=== PATIENT | female | born 1950 | race Caucasian/White ===

== ENCOUNTER → 2016-12-30 | Outpatient (CLI) | payer BC ==
[~2016-12-30] MED LIST: ASP325TEC PO; CALC-850 PO; CHOL200018 PO; FELO10TA3 PO; FENO145T20 PO; GLUC1CAP18 PO; KRIL1CAP12 PO; MULT-1029 PO; NEBI5TAB8 PO; QUIN20TA15 PO; TERB250T10 PO
--- NOTE | 2016-12-31 19:47 | Diagnostic Imaging Report ---
INDICATION: Digital mammogram bilateral screening with tomosynthesis. This study was compared to the prior exam of 08/19/15, 06/20/14 and 08/09/12. At this time, there are no current complaints. The current study was also evaluated with a Computer Aided Detection (CAD) system. FINDINGS: There are scattered fibroglandular densities in both breasts which could obscure a lesion. When compared to the prior study, there has been no significant change. There is no primary or secondary sign of malignancy noted. The 3D tomographic views also fail to show any sign of malignancy. IMPRESSION: There is no evidence of malignancy. ACR BI-RADS Category 1: Negative. Result letter will be mailed to the patient. Note: At least 10% of breast cancer is not imaged by mammography. Dictated on workstation # [id number]
== END ==
LOC: RAD 09:53
PROVIDERS: ATTEND Nurse Practitioner Family
DX: Z12.31 Encounter for screening mammogram for malignant neoplasm of breast (principal)
CPT/HCPCS: 77067

== ENCOUNTER 2018-04-10 13:13 | Outpatient (RCR) | payer BC ==
[~2018-04-10 13:13] MED LIST changes: -FENO145T20 PO; +FENO145T37 PO
[2018-04-10 13:58] LABS: BASOPHILS # (AUTO) 0.1 10^3/uL (0.0-0.1); BASOPHILS % (AUTO) 1 % (0-10); EOSINOPHILS # (AUTO) 0.1 10^3/uL (0.0-0.3); EOSINOPHILS % (AUTO) 2 % (0-10); HEMATOCRIT 42 % (35-52); HEMOGLOBIN 14.5 G/DL (11.5-16.0); LYMPHOCYTES # (AUTO) 2.5 X 10^3 (1.0-4.0); LYMPHOCYTES % (AUTO) 37 % (12-44); MEAN CORPUSCULAR HEMOGLOBIN 29 PG (25-34); MEAN CORPUSCULAR HGB CONC 35 G/DL (32-36); MEAN CORPUSCULAR VOLUME 83 FL (80-99); MEAN PLATELET VOLUME 10.3 FL (7.4-10.4); MONOCYTES # (AUTO) 0.6 X 10^3 (0.0-1.0); MONOCYTES % (AUTO) 8 % (0-12); NEUTROPHILS # (AUTO) 3.6 X 10^3 (1.8-7.8); NEUTROPHILS % (AUTO) 53 % (42-75); PLATELET COUNT 400 10^3/uL (130-400); RED CELL DISTRIBUTION WIDTH 14.3 % (10.0-14.5); WHITE BLOOD COUNT 6.8 10^3/uL (4.3-11.0)
[2018-04-10 14:20] LABS: ALBUMIN 4.2 GM/DL (3.2-4.5); BILIRUBIN,TOTAL 0.4 MG/DL (0.1-1.0); CALCIUM 10.3 MG/DL (8.5-10.1); CREATININE SERUM 0.96 MG/DL (0.60-1.30); POTASSIUM 4.1 MMOL/L (3.6-5.0); TOTAL PROTEIN 7.3 GM/DL (6.4-8.2)
== END 2018-07-09 | disposition home or self-care (01) ==
LOC: ONC 13:13
PROVIDERS: ATTEND Internal Medicine Hematology & Oncology
DX: D47.2 Monoclonal gammopathy (principal); I10 Essential (primary) hypertension; Z79.899 Other long term (current) drug therapy; E78.00 Pure hypercholesterolemia, unspecified; Z87.891 Personal history of nicotine dependence; Z80.52 Family history of malignant neoplasm of bladder; Z80.42 Family history of malignant neoplasm of prostate; Z80.2 Family history of malignant neoplasm of other respiratory and intrathoracic organs; Z80.49 Family history of malignant neoplasm of other genital organs; Z80.9 Family history of malignant neoplasm, unspecified
CPT/HCPCS: 36415; 80053; 82232; 82784; 83883; 84155; 84165; 85025; 99214

== ENCOUNTER → 2019-08-13 | Outpatient (CLI) | payer MEDICARE, BC ==
[~2019-08-13] MED LIST changes: -FELO10TA3 PO; +FELO10TA41 PO; +FENO145T26 PO; -FENO145T37 PO
--- NOTE | 2019-08-13 12:07 | Diagnostic Imaging Report ---
INDICATION: Left foot pain. Time of exam 11:14 AM 3 views of the left foot were obtained. Metatarsals are intact. Phalanges appear intact. Midfoot and hindfoot are unremarkable apart from prominent posterior and plantar calcaneal spurs. No fractures are seen. No periosteal reaction or stress reaction is identified. There is some mild generalized demineralization. IMPRESSION: Demineralization. No acute bony abnormality is detected. Dictated by: Dictated on workstation # [id number]
== END ==
LOC: RAD 10:56
PROVIDERS: ATTEND Family Medicine
DX: M81.0 Age-related osteoporosis without current pathological fracture (principal)
CPT/HCPCS: 73630

== ENCOUNTER 2019-10-05 06:36 | Day surgery (SDC) | payer BC ==
[~2019-10-05] VITALS: Ht 168 cm; Wt 90.0 kg
[2019-10-05] VITALS (9 sets, daily range): BP systolic 132–149; BP diastolic 70–75
[2019-10-05] MEDS ORDERED: LIDOCAINE 1% INJ 20 ML 20 ML VIAL ONE (06:56)
[2019-10-05] MEDS ORDERED: HEParin (CATH LAB) 2,000 ML IV ONE (06:56)
[2019-10-05] MEDS ORDERED: NS IV 1000 ML 1,000 ML ONE (06:56)
[2019-10-05] MEDS ORDERED: NS IV 1000 ML 1,000 ML IV SCH ×2 (07:15→08:57)
[2019-10-05 07:28] LABS: HEMOGLOBIN 15.4 G/DL (11.5-16.0); MEAN PLATELET VOLUME 10.4 FL (7.4-10.4); RED CELL DISTRIBUTION WIDTH 15.2 % (10.0-14.5); WHITE BLOOD COUNT 7.8 10^3/uL (4.3-11.0)
[2019-10-05] MEDS ORDERED: BIOT1TAB PO (07:32)
[2019-10-05] MEDS ORDERED: ASPI-808 PO (07:32)
[2019-10-05] MEDS ORDERED: NIAC500T24 PO (07:32)
[2019-10-05 07:47] LABS: ALBUMIN 4.3 GM/DL (3.2-4.5); BILIRUBIN,TOTAL 0.5 MG/DL (0.1-1.0); CALCIUM 9.6 MG/DL (8.5-10.1); CREATININE SERUM 1.03 MG/DL (0.60-1.30); POTASSIUM 4.2 MMOL/L (3.6-5.0); TOTAL PROTEIN 7.8 GM/DL (6.4-8.2)
[2019-10-05 07:52] LABS: PROTHROMBIN TIME PATIENT 13.5 SEC (12.2-14.7)
[2019-10-05] MEDS ORDERED: MIDAZOLAM 5 MG/5 ML (VERSED) VIAL ONE (07:57)
[2019-10-05] MEDS ORDERED: fentaNYL INJECTION 100 MCG/2 ML AMP ONE (07:57)
[2019-10-05] MEDS ORDERED: diphenhydrAMINE 50 MG/ML INJ (BENADRYL) ONE (07:57)
--- NOTE | 2019-10-05 08:57 | Cardiac Procedure Note-CS/ASA ---
Pre-Procedure Note Pre-Op Procedure Note H&P Reviewed The H&P was reviewed, patient examined and no changes noted. Date H&P Reviewed: October 05, 2019 Time H&P Reviewed: 08:10 Conscious Sedation Pre-Proced Time 08:10 ASA Score 3 For ASA 3 and 4: Consider anesthesia and medical clearance. Also, for patients with a history of failed moderate sedation consider anesthesia. Airway Lungs Heart ASA score ASA 1: a normal healthy patient ASA 2: a patient with a mild systemic disease (mid diabetes, controlled hypertension, obesity ASA 3: a patient with a severe systemic disease that limits activity (angina, COPD, prior Myocardial infarction) ASA 4: a patient with an incapacitating disease that is a constant threat to life (CHF, renal failure) ASA 5: a moribund patient not expected to survive 24 hrs. (ruptured aneurysm) ASA 6: a declared brain- patient whose organs are being harvested. For emergent operations, add the letter E after the classification Mallampati Classification Grade 2 Sedation Plan Analgesia, Amnesia, Plan communicated to team members, Discussed options with patient/fam, Discussed risks with patient/fam The patient is an appropriate candidate to undergo the planned procedure, sedation, and anesthesia. The patient immediately re-assessed prior to indication. PEDRO ARELLANO MD FACP FAC CCDS October 05, 2019 08:57
[2019-10-05] MEDS ORDERED: PATIENT MAY USE OWN MEDS, ALL PO SCH (09:00)
--- NOTE | 2019-10-05 09:02 | Discharge Inst-Post CATH ---
Discharge Inst-CATH/EP Post Cardiac Cath/EP D/C Inst Follow Up/Plan F/u with Dr Walker in 2 weeks ACTIVITY * Go Home directly and rest. * Limit activity of the leg (or wrist if it was used) for 7 days including aerobics, swimming, jogging, bicycling, etc. * Restrict stair-climbing for 7 days if possible, if not, climb up with your n on-cath leg, then bring together on the same step. * Avoid lifting, pushing, pulling or excessive movement of the affected ex tremity for 7 days. * Customary sexual activity may be resumed after 2 days-use caution not to use a position that strains or causes pain to the affected extremity. * No driving for 24 hours. * NO SMOKING. * Avoid straining for bowel movements for 7 days. * Gentle walking on level ground is allowed. * Returning to work will depend on the type of procedure and the results. Your doctor will discuss this with you. CALL YOUR DOCTOR FOR ANY OF THE FOLLOWING: *If bleeding from the puncture site occurs- Apply gentle pressure to site with clean cloth and call your doctor or EMS. * If a knot or lump forms under the skin, increases in size, or causes pain. * If bruising appears to be worsening or moving further down your leg instead of disappearing. * Temperature above 101 F. CARE OF YOUR GROIN INCISION; * Bruising or purple discoloration of the skin near the puncture site is common. * You may shower only, no bathtub bathing for 5 days. Be careful to avoid slipping as your leg may feel stiff. * If a closure device was used on your femoral artery, please see the attached guide regarding care of the device and your leg. * Leave dressing on FOR 24 hours. CARE OF YOUR WRIST INCISION; * Bruising or purple discoloration of the skin near the puncture site is common. * You may shower. * DO NOT submerge wrist. * Leave dressing on FOR 24 hours. PEDRO WALKER MD FACP FAC CCDS October 05, 2019 09:02
--- NOTE | 2019-10-05 09:02 | Discharge Inst-Cardiology ---
Discharge Inst-Cardiac Discharge Medications Continued Medications: Aspirin (Aspirin) 325 Mg Tablet 325 MG PO DAILY, TAB Biotin (Biotin) 1 Mg Tablet 1 MG PO DAILY, TAB Felodipine (Felodipine ER) 10 Mg Tab.er.24h 10 MG PO HS, TAB Fenofibrate Nanocrystallized (Fenofibrate) 145 Mg Tablet 145 MG PO DAILY, TAB Gluc Nunes/Chondro Nunes A/Vit C/Mn (Glucosamine 1,500 Complex Cp) 1 Cap Capsule 1 CAP PO BID, CAP Krill/[place]-3/Dha/Epa/Lipids (Krill Oil 300 Mg Softgel) 1 Each Capsule 1 EACH PO DAILY, CAP Mu-Vits-Min Th/Lycopene/Lutein (Centrum Silver Tablet) 1 Each Tablet 1 EACH PO DAILY, TAB Nebivolol Hcl (Bystolic) 5 Mg Tablet 2.5 MG PO BID, TAB Niacinamide (Niacin) 500 Mg Tablet 500 MG PO DAILY, TAB Quinapril Hcl (Quinapril) 20 Mg Tablet 20 MG PO BID, TAB PEDRO ARELLANO MD FACP FAC CCDS October 05, 2019 09:01
--- NOTE | 2019-10-05 09:50 | CARDIAC CATHETERIZATION ---
DATE OF SERVICE: 10/05/2019 CARDIAC CATHETERIZATION The patient is a 69-year-old lady, who has multiple coronary artery disease risk factors and has symptoms consistent with unstable angina. Cardiac catheterization was recommended and informed consent was obtained. DESCRIPTION OF PROCEDURE: She was brought to the cardiac catheterization laboratory in a fasting state. Right groin was prepared and draped in the usual sterile fashion. Lidocaine 1% was used for local anesthesia. Modified Seldinger technique was used to advance a 5-Ecuadorean sheath into the right femoral artery. A 5-Ecuadorean JL4 catheter was used for left coronary angiography and 5-Ecuadorean JR4 catheter was used for right coronary angiography. A 5-Ecuadorean pigtail catheter was used for left heart catheterization and left ventricular angiography. Because cardiac catheterization and coronary angiography did not indicate any coronary source of chest pain and because the aortic knob was exhibiting some calcification, we pulled back the pigtail catheter to the aortic arch and aortic arch angiography was performed. The pigtail catheter was then removed. Angiography of the right femoral artery was carried out through the sheath. Mynx was used to achieve hemostasis. She tolerated the procedure well. HEMODYNAMICS: Left ventricular end-diastolic pressure following coronary angiography was 21 mmHg. There is no significant pressure gradient on pullback across the aortic valve. Ascending aortic pressure was 137/78 with a mean of 103 mmHg. LEFT VENTRICULAR ANGIOGRAPHY: Left ventricular angiography was carried out in the right anterior oblique projection. Global left ventricular systolic function normal. No regional wall motion abnormalities seen. Left ventricular ejection fraction is approximately 60%. CORONARY ANGIOGRAPHY: Left main coronary artery is free of significant disease. Left anterior descending artery is free of significant disease. Left circumflex artery is free of significant disease. Right coronary artery is dominant and free of significant disease. AORTIC ARCH ANGIOGRAPHY: Aortic arch angiography did not indicate any significant thoracic aortic aneurysm or dissection. Some calcification of the aortic arch is seen. Neck arteries, to the extent visualized, do not exhibit any significant disease. CONCLUSIONS: 1. No angiographically significant coronary artery disease. 2. Normal global left ventricular systolic function with ejection fraction approximately 60%. 3. Elevated left ventricular end-diastolic pressure, measuring 21 mmHg. 4. Aortic arch calcification without evidence of thoracic aortic aneurysm or dissection. DISCUSSION AND RECOMMENDATIONS: Based on results of the study, it appears appropriate to continue a conservative approach. Risk factor modification has been reviewed. Outpatient followup is advised. Job ID: [id number] DocumentID: [id number] Dictated Date: 10/05/2019 08:47:57 Robotics Systems Engineer Date: 10/05/2019 09:50:08 Dictated By: PEDRO ARELLANO MD, MA, FACP, FACC,
== END 2019-10-05 12:05 | disposition home or self-care (01) ==
LOC: CATH 06:36 → SDC 09:09 → CATH 12:05
PROVIDERS: ATTEND Internal Medicine Cardiovascular Disease
DX: I70.0 Atherosclerosis of aorta (principal); I10 Essential (primary) hypertension; E78.00 Pure hypercholesterolemia, unspecified; E78.5 Hyperlipidemia, unspecified; E66.9 Obesity, unspecified; Z68.31 Body mass index [BMI] 31.0-31.9, adult; Z90.710 Acquired absence of both cervix and uterus; Z90.49 Acquired absence of other specified parts of digestive tract; Z87.891 Personal history of nicotine dependence; Z91.040 Latex allergy status; Z88.5 Allergy status to narcotic agent; Z79.82 Long term (current) use of aspirin; Z79.899 Other long term (current) drug therapy; Z80.1 Family history of malignant neoplasm of trachea, bronchus and lung
CPT/HCPCS: 36221; 36415; 80053; 80061; 85027; 85610; 85730; 87081; 93458

== ENCOUNTER 2022-08-12 09:42 | Emergency (ER) | payer BC ==
[~2022-08-12] VITALS: Ht 167 cm; Wt 81.0 kg
[~2022-08-12 09:42] MED LIST changes: +ASPI-808 PO; +BIOT1TAB PO; +NIAC500T24 PO
--- NOTE | 2022-08-12 09:55 | ED Fall/Injury ---
General Chief Complaint: Trauma-Non Activation Stated Complaint: FALL | HEAD AND RT WRIST INJ Source: patient, EMS History of Present Illness Date Seen by Provider: Aug 12, 2022 Time Seen by Provider: 09:45 Initial Comments 72-year-old female presents to the emergency department via EMS. She was playing pickle ball at a local gym and was closer to the back wall than she realized. When she backed up to get a shot she hit the wall, striking the back part of her head. She states she then slid down the wall and hurt her right wrist. She stated that she had a friend who is a nurse there. She was trying to get to speak with her and she was briefly stunned. She also states she had a brief period of electric shock sensation from her neck into her bilateral upper extremities. There were several seconds where she felt like she could not move her bilateral upper extremities. This is subsided at present. No lower extremity injury. No chest pain, abdominal pain. She has no neck pain, h eadache or changes in vision at present. She is not on any blood thinning medications. All other systems reviewed and negative except documented per HPI. Voice recognition software was used to help create this chart Allergies and Home Medications Allergies Coded Allergies: Iodinated Contrast Media (Unverified Allergy, Unknown, 10/05/19) HIVES codeine (Unverified Allergy, Unknown, 06/04/15) Patient Home Medication List Home Medication List Reviewed: Yes Aspirin (Aspirin) 325 Mg Tablet, 325 MG PO DAILY, (Reported) Entered as Reported by: CHIRAG DRAPER on 10/05/19 0732 Biotin (Biotin) 1 Mg Tablet, 1 MG PO DAILY, (Reported) Entered as Reported by: CHIRAG DRAPER on 10/05/19 0732 Felodipine (Felodipine ER) 10 Mg Tab.er.24h, 10 MG PO HS, (Reported) Entered as Reported by: ROBERT POTTS on 05/30/15 09 Fenofibrate Nanocrystallized (Fenofibrate) 145 Mg Tablet, 145 MG PO DAILY, (Reported) Entered as Reported by: ROBERT POTTS on 05/30/15 09 Gluc Nunes/Chondro Nunes A/Vit C/Mn (Glucosamine 1,500 Complex Cp) 1 Cap Capsule, 1 CAP PO BID, (Reported) Entered as Reported by: CHAPARRO DELONG on 06/17/14 1002 Krill/[place]-3/Dha/Epa/Lipids (Krill Oil 300 Mg Softgel) 1 Each Capsule, 1 EACH PO DAILY, (Reported) Entered as Reported by: CHAPARRO DELONG on 06/17/14 1002 Mu-Vits-Min Th/Lycopene/Lutein (Centrum Silver Tablet) 1 Each Tablet, 1 EACH PO DAILY, (Reported) Entered as Reported by: CHAPARRO DELONG on 06/17/14 1002 Nebivolol Hcl (Bystolic) 5 Mg Tablet, 2.5 MG PO BID, (Reported) Entered as Reported by: CHAPARRO DELONG on 06/17/14 1002 Niacinamide (Niacin) 500 Mg Tablet, 500 MG PO DAILY, (Reported) Entered as Reported by: CHIRAG DRAPER on 10/05/19 0732 Quinapril Hcl (Quinapril) 20 Mg Tablet, 20 MG PO BID, (Reported) Entered as Reported by: CHAPARRO DELONG on 06/17/14 1002 Review of Systems Review of Systems Constitutional: see HPI Past Swshudp-Olwptm-Khpeov Hx Patient Social History Tobacco Use?: No Use of E-Cig and/or Vaping dev: No Substance use?: No Alcohol Use?: No Immunizations Up To Date Tetanus Booster (TDap): Unknown Past Medical History Respiratory: No Cardiac: Yes Hypertension Neurological: No Reproductive Disorders: No Gastrointestinal: No Arthritis Cancer: No Blood Disorders: No Family Medical History Alcoholism 19 FATHER 19 MOTHER G8 SISTER Arthritis 19 FATHER 19 MOTHER G8 BROTHER G8 SISTER Cardiovascular disease 19 FATHER 19 MOTHER G8 BROTHER G8 SISTER Colon cancer Completed stroke G8 BROTHER Diabetes mellitus G8 BROTHER G8 SISTER Drug abuse G8 BROTHER G8 SISTER FH: cancer G8 BROTHER (bladder ca) G8 SISTER (vocal cord cancer, lung ca, uterine) Headache disorder 19 MOTHER Hypertension 19 FATHER 19 MOTHER G8 BROTHER G8 SISTER Myocardial infarction 19 FATHER 19 MOTHER Prostate cancer G8 BROTHER Psychosocial problem 19 FATHER 19 MOTHER G8 BROTHER G8 SISTER Seizure disorder G8 BROTHER Physical Exam Vital Signs Vital Signs - First Documented 08/12/22 09:48 Temp 37.0 Pulse 63 Resp 20 B/P (MAP) 179/93 (121) Pulse Ox 97 O2 Delivery Room Air Capillary Refill : Height, Weight, BMI Height: 5'7.00" Weight: 188lbs. oz. 85.319803oi; 31.88 BMI Method: General Appearance: WD/WN, no apparent distress HEENT: normal ENT inspection, pharynx normal Neck: non-tender, supple, normal inspection, other (Cervical collar in place) Cardiovascular: regular rate, rhythm, no murmur Respiratory: chest non-tender, lungs clear, normal breath sounds, no respiratory distress, no accessory muscle use Gastrointestinal: normal bowel sounds, non tender, soft, no organomegaly Extremities: other (Swelling about the left wrist radial aspect. No obvious deformity. Neurovascular motor and sensory intact. There is tenderness palpation here. There is a small abrasion to right posterior elbow. Hemostatic.) Neurologic/Psychiatric: dish cloth inspector II-XII nml as tested, no motor/sensory deficits, alert, normal mood/affect, oriented x 3 Skin: normal color, warm/dry Progress/Results/Core Measures Results/Orders My Orders Orders - SAULTELLO SZYMANSKI DO Wrist, Right, 3 Views Or More (08/12/22 09:51) Ct Head/Cervical Spine Wo (08/12/22 09:51) Vital Signs/I&O 08/12/22 09:48 Temp 37.0 Pulse 63 Resp 20 B/P (MAP) 179/93 (121) Pulse Ox 97 O2 Delivery Room Air Departure Communication (Admissions) Patient is hemodynamically stable. I independently reviewed her plain films of her wrist as well as her CT scan of her head and neck. She has a distal right radius fracture that is comminuted intra-articular. Clinically she is neurovascular and sensory intact. CT scan of her brain and neck showed no acute findings. I believe she had a stinger which is the cause of her brief loss of motor control for her upper extremities bilaterally. She is completely asymptomatic with no paresthesias, weakness at this time. No evidence of central cord syndrome. She has no other obvious injuries. She is placed in a sugar-tong splint and post-splint evaluation reveals her to be neurovascular intact with good capillary refill. Splint fits well. She is discharged home with orthopedic follow-up. I prescribed her hydrocodone and gave her instructions for use. She is discharged in stable condition. Impression Primary Impression: Fracture of right distal radius Qualified Codes: S52.571A - Other intraarticular fracture of lower end of right radius, initial encounter for closed fracture Disposition: HOME, SELF-CARE Condition: Stable Departure-Patient Inst. Referrals: SOPHIA CRAWLEY MD (PCP/Family) Primary Care Physician ELMA ESCOBAR MD Add. Discharge Instructions: Your CT scans of your head and neck are normal. I believe a brief weakness you experiencing also is related to a "stinger." We will likely not have any long- lasting effects. If you develop any worsening weakness either return to the emergency department or follow-up with your primary doctor. You do have a radius fracture in your wrist on the right side. Keep the splint in place until you follow-up with the orthopedist for definitive casting. Use the pain medication as prescribed as needed. Do not make important decisions while taking this as it may make you drowsy. This may cause constipation so I also recommend you use a stool softener while taking it. Follow-up with your primary doctor for any nonemergent needs. Return to the emergency department for any severe concerns All discharge instructions reviewed with patient and/or family. Voiced understanding. Scripts Hydrocodone/Acetaminophen (Hydrocodone-Acetamin 5-325 mg) 5 Mg-325 Mg Tablet 1 TAB PO Q4H PRN for PAIN-MODERATE (5-7) for 3 Days, #12 TAB Prov: TELLO HUGHES DO 08/12/22 TELLO HUGHES DO Aug 12, 2022 09:55
--- NOTE | 2022-08-12 10:20 | Diagnostic Imaging Report ---
PROCEDURE: CT head and CT cervical spine without contrast. TECHNIQUE: Multiple contiguous axial images were obtained through the brain and cervical spine without the use of intravenous contrast. Sagittal and coronal reformations through the cervical spine were then performed. Auto Exposure Controls were utilized during the CT exam to meet ALARA standards for radiation dose reduction. INDICATION: Head injury with head and neck pain CT HEAD: CT images of the head were obtained. FINDINGS: Ventricles and sulci are within normal limits for size. There is no intracranial hemorrhage identified. There is no abnormal mass effect or shift of midline structures. IMPRESSION: Unremarkable CT of the head. CT CERVICAL SPINE: Multiple contiguous axial CT images of the cervical spine were obtained with sagittal and coronal reformatted images produced. FINDINGS: The cervical curvature and alignment are within normal limits. The vertebral body heights and disc spaces are maintained without evidence of fracture or subluxation. There is no paraspinous hematoma. There is diffuse disc space narrowing with endplate spurring and degenerative facet arthropathy. Note is made of fused left C2-C3 facet joint. In central note is made of subcentimeter low density nodule in the right lobe of thyroid gland which appears to be circumscribed. IMPRESSION: No CT evidence of acute cervical spinal abnormality. Moderate cervical spondylosis is present. Dictated by: Dictated on workstation # [id number]
[2022-08-12] MEDS ORDERED: ACHD5005 PO (11:08)
--- NOTE | 2022-08-12 11:17 | Diagnostic Imaging Report ---
EXAMINATION: Right wrist radiographs, 3 views. COMPARISON: None. HISTORY: 72-year-old female, fall. Right wrist pain and swelling. FINDINGS: There is a comminuted displaced intra-articular fracture of the distal radius. There is mild medial to lateral splaying of the articulating surface without additional gross offset. There is no additional identified acute fracture. There is no radiopaque foreign body. IMPRESSION: 1. Comminuted displaced, intra-articular fracture of the distal radius with mild medial to lateral splaying of the articulating surface. Dictated by: Dictated on workstation # [id number]
[2022-08-12 11:20] VITALS: BP 143/91
== END 2022-08-12 11:22 | disposition home or self-care (01) ==
LOC: EDUNIT# 09:42 → ER 09:44
DX: S52.571A Other intraarticular fracture of lower end of right radius, initial encounter for closed fracture (principal); Z88.5 Allergy status to narcotic agent; W22.01XA Walked into wall, initial encounter; Y92.39 Other specified sports and athletic area as the place of occurrence of the external cause; Y93.73 Activity, racquet and hand sports
CPT/HCPCS: 29105; 70450; 72125; 73110